=== PATIENT | male | born 1985 | race Caucasian/White ===

== ENCOUNTER 2024-02-22 12:03 | Emergency (ER) | payer OTHER ==
[~2024-02-22] VITALS: Ht 185.4 cm; Wt 78.9 kg
[2024-02-22 12:16] VITALS: BP 139/66; TEMP 98.7; O2SAT 100
== END 2024-02-22 14:04 | disposition home or self-care (01) ==
LOC: ER 12:33
DX: S90.121A Contusion of right lesser toe(s) without damage to nail, initial encounter (principal); Z60.2 Problems related to living alone; W22.8XXA Striking against or struck by other objects, initial encounter; Y93.89 Activity, other specified; Y92.89 Other specified places as the place of occurrence of the external cause; Y99.8 Other external cause status
CPT/HCPCS: 73660-TC

== ENCOUNTER 2025-05-02 09:23 | Emergency (ER) | payer OTHER ==
[~2025-05-02] VITALS: Ht 185.4 cm; Wt 80.7 kg
[2025-05-02 11:13] VITALS: BP 116/68; TEMP 98.2; O2SAT 98
== END 2025-05-02 11:14 | disposition home or self-care (01) ==
LOC: ER 09:26
DX: S43.101A Unspecified dislocation of right acromioclavicular joint, initial encounter (principal); S43.102A Unspecified dislocation of left acromioclavicular joint, initial encounter; Z60.2 Problems related to living alone; V89.2XXA Person injured in unspecified motor-vehicle accident, traffic, initial encounter; Y93.89 Activity, other specified; Y92.410 Unspecified street and highway as the place of occurrence of the external cause; Y99.9 Unspecified external cause status
CPT/HCPCS: 73030-TC